=== PATIENT | female | born 1990 ===

== ENCOUNTER 2016-10-25 17:10 | Emergency (ER) | payer OTHER, MEDICAID ==
[2016-10-25 17:17] VITALS: BP 143/89; PULSE 86; RESP 16; TEMP 98; O2SAT 99
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
--- NOTE | 2016-10-26 10:10 | RAD ---
PROCEDURE: Cervical Spine Radiographs. HISTORY: Pain. COMPARISON: None. FINDINGS: BONES: Alignment maintained. No fracture. Dens Intact. DISC SPACES: Normal. SOFT TISSUES: Normal. No prevertebral soft tissue swelling. OTHER FINDINGS: None. IMPRESSION: No radiographic evidence of acute fracture or of subluxation. If clinically warranted further assessment by other modality such as CT or MRI may be obtained.
== END 2016-10-25 19:32 | disposition home or self-care (01) ==
LOC: H.ER 17:10
DX: S16.1XXA Strain of muscle, fascia and tendon at neck level, initial encounter (principal); S46.911A Strain of unspecified muscle, fascia and tendon at shoulder and upper arm level, right arm, initial encounter; V09.9XXA Pedestrian injured in unspecified transport accident, initial encounter; Y93.01 Activity, walking, marching and hiking; Y92.410 Unspecified street and highway as the place of occurrence of the external cause